=== PATIENT | male | born 1995 | race Caucasian/White ===

== ENCOUNTER 2016-07-10 15:55 | Emergency (ER) | payer OTHER ==
[~2016-07-10] VITALS: Ht 182.9 cm; Wt 95.3 kg
[2016-07-10 16:03] VITALS: BP 126/82
--- NOTE | 2016-07-10 17:33 | ED GENERAL ADULT ---
History of Present Illness General Chief Complaint: General Adult Stated Complaint: LIGHTHEADED,FEVER,DIARRHEA Source: patient Exam Limitations: no limitations Vital Signs & Intake/Output Vital Signs & Intake/Output Vital Signs Date Time Temp Pulse Resp B/P B/P Pulse O2 O2 Flow FiO2 Mean Ox Delivery Rate 07/10 1826 Room Air Room Air 07/10 1603 96.5 94 16 126/82 98 Room Air Allergies Coded Allergies: No Known Allergies (07/10/16) Reconcile Medications Hyoscyamine (Levsin) 0.125 MG TABLET 1 TAB PO Q4 PRN ABDOMINAL SPASMS Triage Note: TRIAGE: C/O DIZZY, LIGHTHEADED, HOTSWEATS, MINOR DIARRHEA. +N/-V. ARRIVES AFEBRILE IN TRIAGE 96.5. REPORTS TROUBLE FOCUSING EYES, PUPILS EQUAL AND REACTIVE. NO NEURO DEFICITS OBSERVED. DENIES CP OR SOB. DENIES PAIN. REPORTS ADEQUATE FLUID INTAKE. Triage Nurses Notes Reviewed? yes Onset: Gradual Duration: day(s): (2) Timing: remote history Injury Environment: home Severity: moderate Severity Numbers: 5 Modifying Factors: Improves With: immobilization. Worsens With: medication. HPI: Patient is a 20-year-old male with no medical history presenting to the emergency department with chief complaint of lightheadedness, intermittent dizziness is worse with positional changes. Patient also reports some nausea and diarrhea for the past 2 days. One episode of diarrhea today. No blood in the stool. Reports abdominal cramping intermittently. No fevers, positive chills. Denies getting the flu shot this year. Has been eating and drinking without difficulty. (MAILE JEFFERY) Past History Travel History Traveled to [place] past 21 day No Medical History Any Pertinent Medical History? see below for history Neurological: NONE EENT: NONE Cardiovascular: NONE Respiratory: NONE Gastrointestinal: NONE Hepatic: NONE Renal: NONE Musculoskeletal: NONE Psychiatric: NONE Endocrine: NONE Blood Disorders: NONE Cancer(s): NONE Surgical History Surgical History: non-contributory Psychosocial History What is your primary language [place] Island[place] Tobacco Use: Never used ETOH Use: denies use Illicit Drug Use: denies illicit drug use Family History Hx Contributory? No (MAILE JEFFERY) Review of Systems Review of Systems Constitutional: Reports: no symptoms. Comments Review of systems: See HPI, All other systems negative. Constitutional, no chills fever or weight loss HEENT: No visual changes no sore throat no congestion Cardiovascular: No chest pain ,palpitation Skin, no jaundice no rashes Respiratory: No dyspnea cough sputum or hemoptysis GI: no vomiting : No dysuria No hematuria Muscle skeletal: no back pain, no neck pain, Neurologic: No numbness no confusion, no headaches Psych: No stress anxiety or depression,. Heme/endocrine: No bruising no bleeding no polyuria or polydipsia Immunology: No splenectomy or history of AIDS (MAILE JEFFERY) Physical Exam Physical Exam General Appearance: well developed/nourished, no apparent distress, alert, awake , comfortable Comments: Well-developed well-nourished person in no acute distress HEENT: extraocular motion intact, no nystagmus. Pupils equally round and reactive to light and accommodation. Nose is atraumatic. External auditory canal and Tympanic membranes clear on the left, mild congestion noted on the right TM.. Pharynx normal. No swelling or edema. Neck: Normal inspection, no lymphadenopathy, supple full range of motion. Back: Nontender, no CVA tenderness. Cardiovascular: Regular rate and rhythms no murmurs rubs or gallops, normal JVP Respiratory: Chest nontender. No respiratory distress.breath sounds clear to auscultation bilaterally Abdomen: Soft, nontender nondistended, no appreciable organomegaly. Normal bowel sounds. No ascites. No rebound or guarding. Extremity: No edema, no calf tenderness to palpation, normal and equal pulses. Neuro: Alert oriented x3 Skin: No appreciable rash on exposed skin, skin is warm and dry. Psych: Mood and affect is normal, memory and judgment is normal. Core Measures ACS in differential dx? No CVA/TIA Diagnosis: No Severe Sepsis Present: No Septic Shock Present: No (MAILE JEFFERY) Progress Differential Diagnoses I considered the following diagnoses in my evaluation of the patient: Viral syndrome, viral meningitis, influenza, dehydration, gastritis, enteritis, and electrolyte abnormality, dehydration, UTI, orthostatic hypotension Plan of Care: Orders Procedure Date/time Status URINALYSIS 07/10 183 Complete MISTAKE 07/10 174 Active RAPID VIRAL INFLUENZA A 07/10 174 Complete LIPASE 07/10 174 Complete COMPREHENSIVE METABOLIC PANEL 07/10 1748 Complete CBC WITHOUT DIFFERENTIAL 07/10 1748 Complete AMYLASE 04/28 1749 Complete Laboratory Tests 07/10/16 183: Urine Color STRAW, Urine Clarity CLEAR, Urine pH 6.5, Ur Specific Adkins 1.010, Urine Protein NEG, Urine Ketones NEG, Urine Nitrite NEG, Urine Bilirubin NEG, Urine Urobilinogen 0.2, Ur Leukocyte Esterase NEG, Ur Microscopic SEDIMENT EXAMINED, Urine Bacteria RARE H, Urine Hemoglobin TRACE-INTACT H, Urine Glucose NEG 07/10/16 181: Anion Gap 14, Estimated GFR > 60, BUN/Creatinine Ratio 17.5, Glucose 80, Calcium 9.8, Total Bilirubin 0.8, AST 29, ALT 65, Alkaline Phosphatase 127 H, Total Protein 8.2, Albumin 4.8, Globulin 3.4, Albumin/Globulin Ratio 1.4, Amylase 49, Lipase 21 L, CBC w Diff NO MAN DIFF REQ, RBC 5.39, MCV 89.9, MCH 30.3, RDW 12.7 , MPV 8.0, Gran % 70.1, Lymphocytes % 20.5, Monocytes % 7.7, Eosinophils % 1.1, Basophils % 0.6, Absolute Granulocytes 6.8 H, Absolute Lymphocytes 2.0, Absolute Monocytes 0.7 H, Absolute Eosinophils 0.1, Absolute Basophils 0.1, PUBS MCHC 33.6 Microbiology 07/10 1820 NASOPHARYN: Influenza Virus A & B Rapid Smear - COMP Initial ED EKG: none (MAILE JEFFERY) Departure Departure Time of Disposition: 1916 Disposition: HOME OR SELF CARE Condition: Stable Clinical Impression Primary Impression: Viral syndrome Secondary Impressions: Diarrhea Qualifiers: Diarrhea type: unspecified type Qualified Code: R19.7 - Diarrhea, unspecified Dizziness Referrals: JONATHAN ERNST,TONI Ayala (PCP/Family) Additional Instructions: Follow-up with her primary care physician call to make appointment. Increase fluids. Take Levsin to help with abdominal discomfort and diarrhea. Return for worsening symptoms or concerns. Departure Forms: Customer Survey General Discharge Information Prescriptions: Current Visit Scripts Hyoscyamine (Levsin) 1 TAB PO Q4 PRN ABDOMINAL SPASMS #20 TAB (MAILE JEFFERY) PA/DATA MANAGEMENT ENGINEER Co-Sign Statement Statement: ED Attending supervision documentation- [] I saw and evaluated the patient. I have also reviewed all the pertinent lab results and diagnostic results. I agree with the findings and the plan of care as documented in the PA's/DATA MANAGEMENT ENGINEER's documentation. [x] I have reviewed the ED Record and agree with the PA's/DATA MANAGEMENT ENGINEER's documentation. [] Additions or exceptions (if any) to the PAs/DATA MANAGEMENT ENGINEER's note and plan are summarized below: [] (SALVATORE ERNST,CASSANDRA Briscoe) Critical Care Note Critical Care Note Critical Care Time: non-applicable (DAKOTA DUMONT,MAILE)
[2016-07-10 18:26] LABS: ABSOLUTE BASOPHIL COUNT 0.1 /CUMM (0.0-0.2); ABSOLUTE EOSINOPHIL COUNT 0.1 /CUMM (0.0-0.7); ABSOLUTE GRANULOCYTE CT 6.8 /CUMM (1.4-6.5); ABSOLUTE MONOCYTE COUNT 0.7 /CUMM (0.10-0.60); BASOPHIL % 0.6 % (0.0-2.0); EOSINOPHIL % 1.1 % (0-5); GRANULOCYTE % 70.1 % (42.2-75.2); HEMATOCRIT 48.5 % (42-52); MEAN CORPUSCULAR HGB 30.3 PG (27.0-31.0); MEAN CORPUSCULAR HGB CONC 33.6 G/DL (33.0-37.0); MEAN CORPUSCULAR VOLUME 89.9 FL (80.0-94.0); PLATELET COUNT 280 /CUMM (130-400); RBC DISTRIBUTION WIDTH 12.7 % (11.5-14.5); RED BLOOD CELL CT 5.39 /CUMM (4.70-6.10); WHITE BLOOD CELL COUNT 9.7 /CUMM (4.8-10.8)
[2016-07-10] MEDS ORDERED: LEVSIN0.125 M1 PO (19:19)
== END 2016-07-10 19:34 ==
LOC: ERH 15:55
PROVIDERS: Physician Assistant
DX: B34.9 Viral infection, unspecified (principal); R19.7 Diarrhea, unspecified
CPT/HCPCS: 81001; 87804; 87804-59; 96374; 96375; J1885; J2405